=== PATIENT | female | born 1970 | race Caucasian/White ===

== ENCOUNTER 2017-05-22 15:38 | Emergency (ER) | payer MEDICAID, OTHER ==
[~2017-05-22] VITALS: Ht 167.6 cm; Wt 82.5 kg
[~2017-05-22 15:38] MED LIST: HYDR-762 PO; IBUP800T25 PO; ONDA4TAB35 PO; TAMS-14 PO
[2017-05-22 15:41] VITALS: Ht 167.6 cm; Wt 82.5 kg
[2017-05-22] MEDS ORDERED: IBUPROFEN 800 MG TAB PO ONE (17:30)
[2017-05-22] MEDS ORDERED: NPH10OT LEFT EAR (17:41)
[2017-05-22] MEDS ORDERED: AMOX500C2 PO (17:41)
[2017-05-22] MEDS ORDERED: IBUP-1542 PO (17:42)
[2017-05-22] MEDS ORDERED: ACET500C5 PO (17:42)
--- NOTE | 2017-05-22 17:48 | ERD ---
ER Documentation Chief Complaint Date/Time DATE: 05/22/17 TIME: 17:46 Chief Complaint Complains of left ear pain since today HPI This is a 36-year-old female who presents emergency department today complaining of left ear pain that started yesterday. States that she had pain that is worse this morning when she woke up. She took some pain medication that her gave her. Denies any sore throat, cough, nasal congestion. Denies swimming activity, fevers or chills. ROS All systems reviewed and are negative except as per history of present illness. Medications Home Meds Active Scripts Acetaminophen* (Tylophen*) 500 Mg Capsule, 1 CAP PO Q6H Y for PAIN AND OR ELEVATED TEMP, #30 CAP Prov:AMINA MILLER PA-C 05/22/17 Ibuprofen* (Motrin*) 600 Mg Tab, 600 MG PO Q6, #30 TAB Prov:AMINA MILLER PA-C 05/22/17 Amoxicillin* (Amoxicillin*) 500 Mg Cap, 500 MG PO TID for 7 Days, CAP Prov:AMINA MILLER PA-C 05/22/17 Neomycin/Polymyxin/Hydrocort* (Cortisporin* Otic) 10 Ml Susp, 4 DROP LEFT EAR QID for 7 Days, EA Prov:AMINA MILLER PA-C 05/22/17 Tamsulosin Hcl* (Flomax*) 0.4 Mg Cap.er.24h, 0.4 MG PO QPM, #7 CAP Prov:THOR SANTORO MD 03/27/16 Ondansetron Hcl* (Zofran* ODT) 4 mg -ODT Tab.disper, 4 MG PO Q6 Y for NAUSEA AND /OR VOMITING, #10 TAB Prov:THOR SANTORO MD 03/27/16 Ibuprofen* (Motrin*) 800 Mg Tab, 800 MG PO Q6H Y for PAIN AND OR ELEVATED TEMP, #30 TAB Prov:THOR SANTORO MD 03/27/16 Hydrocodone Bit-Acetaminophen* ([place]*) 10-325 Mg Tablet, 1 TAB PO Q6 Y for PAIN , #12 TAB Prov:THOR SANTORO MD 03/27/16 Allergies Allergies: Coded Allergies: No Known Allergy (Unverified , 09/02/15) PMhx/Soc History of Surgery: No Anesthesia Reaction: No Hx Neurological Disorder: No Hx Respiratory Disorders: No Hx Cardiac Disorders: No Hx Psychiatric Problems: No Hx Miscellaneous Medical Probl: No Hx Alcohol Use: No Hx Substance Use: No Hx Tobacco Use: No Physical Exam Vitals Vital Signs Date Time Temp Pulse Resp B/P Pulse Ox O2 Delivery O2 Flow Rate FiO2 05/22/17 15:41 100.0 95 20 165/95 97 Physical Exam Const: NAD Head: Atraumatic Eyes: Normal Conjunctiva ENT: Ear with cerumen impaction. Left ear with evidence of purulent drainage unable to assess TM. No mastoid tenderness. Nose no drainage. Throat erythema no exudate no vesicles Neck: Full range of motion..~ No meningismus. Resp: Clear to auscultation bilaterally Cardio: Regular rate and rhythm, no murmurs Abd: Soft, non tender, non distended. Normal bowel sounds Skin: No petechiae or rashes Neur: Awake and alert Psych: Normal Mood and Affect Results 24 hrs Current Medications Medications (Trade) Dose Ordered Sig/Leydi Route PRN Reason Start Time Stop Time Status Last Admin Dose Admin Ibuprofen (Motrin) 800 mg ONCE ONCE PO 05/22/17 17:30 05/22/17 17:31 DC Procedures/MDM This is a 46-year-old female presents the emergency department today complaining of left ear pain that started yesterday. On physical exam patient had evidence of purulent drainage from her left ear. Her temperature was slightly elevated at 100.0. She is not tachycardic. She does not have tenderness on her mastoid. Patient symptoms at this time most consistent with otitis externa. Given that I am unable to see the patient's TM to the discharge and will also treat her for otitis media. Low suspicion for sepsis, severe acute bacterial infection, mastoiditis. Patient was given Motrin here in the emergency department. She will given a prescription for Tylenol and Motrin for home as well as amoxicillin and Cortisporin. At this time the patient is stable for discharge and outpatient management. Patient should follow up with their PCP in the next 1-2 days. They may return to the emergency department sooner for any persistent or worsening of symptoms. Patient understood and agreed with the plan. Departure Diagnosis: Primary Impression: Left ear pain Condition: Fair Patient Instructions: Otitis Externa (Child) Referrals: SAMUEL CROCKER (PCP) Additional Instructions: Call your primary care doctor TOMORROW for an appointment during the next 1-2 days.See the doctor sooner or return here if your condition worsens before your appointment time. Take both antibiotics as prescribed Keep water out of ear Take tylenol or Motrin for pain or fever AMINA MILLER PA-C May 22, 2017 17:48
== END 2017-05-22 19:22 | disposition home or self-care (01) ==
LOC: FTE 15:38
DX: H92.02 Otalgia, left ear (principal)
CPT/HCPCS: Z7502; Z7610; 99283

== ENCOUNTER 2019-03-02 03:22 | Emergency (ER) | payer OTHER ==
[~2019-03-02] VITALS: Ht 152.4 cm; Wt 85.0 kg
[~2019-03-02 03:22] MED LIST changes: +ACET500C5 PO; +AMOX500C2 PO; +IBUP-1542 PO; -IBUP800T25 PO; +IBUP800T48 PO; +NPH10OT LEFT EAR
[2019-03-02 03:25] VITALS: Ht 152.4 cm; Wt 85.0 kg
[2019-03-02] MEDS ORDERED: SOD CHLORIDE 0.9% 1,000 ML IV STA (03:46)
[2019-03-02] MEDS ORDERED: METOCLOPRAMIDE 10 MG INJ IV STA (03:46)
[2019-03-02] MEDS ORDERED: KETOROLAC 30 MG INJ IV STA (03:46)
--- NOTE | 2019-03-02 04:04 | ERD ---
ER Documentation Chief Complaint Chief Complaint C/O WORSENING RT SIDED GIANG WITH TINGLING TO CHAY HANDS X2 DAYS HPI 48-year-old female with a history of chronic headaches presenting with worsening right-sided headache for the past 3 days. The headache has been intermittent, stabbing, nonradiating, with no exacerbating factors. Somewhat alleviated with ibuprofen at home. No associated fever, chills, neck stiffness, nausea, vomiti ng, vision disturbance, focal weakness or numbness. She occasionally gets tingling in her bilateral hands. She had an MRI about 2 years ago that was normal. She never followed up with physician about her chronic headaches. Current headache episode was gradual in onset. However it is worse than her usual headaches. ROS All systems reviewed and are negative except as per history of present illness. Medications Home Meds Active Scripts Ibuprofen* (Motrin*) 600 Mg Tab, 600 MG PO Q6H PRN for PAIN AND OR ELEVATED TEMP, #30 TAB Prov:MOUNIKA CAI MD 03/02/19 Discontinued Scripts Acetaminophen* (Tylophen*) 500 Mg Capsule, 1 CAP PO Q6H PRN for PAIN AND OR ELEVATED TEMP, #30 CAP Prov:AMINA MILLER PA-C 05/22/17 Ibuprofen* (Motrin*) 600 Mg Tab, 600 MG PO Q6, #30 TAB Prov:AMINA MILLER PA-C 05/22/17 Amoxicillin* (Amoxicillin*) 500 Mg Cap, 500 MG PO TID for 7 Days, CAP Prov:AMINA MILLER PA-C 05/22/17 Neomycin/Polymyxin/Hydrocort* (Cortisporin* Otic) 10 Ml Susp, 4 DROP LEFT EAR QID for 7 Days, EA Prov:AMINA MILLER PA-C 05/22/17 Tamsulosin Hcl* (Flomax*) 0.4 Mg Cap.er.24h, 0.4 MG PO QPM, #7 CAP Prov:THOR SANTORO MD 03/27/16 Ondansetron Hcl* (Zofran* ODT) 4 mg -ODT Tab.disper, 4 MG PO Q6 PRN for NAUSEA AND/OR VOMITING, #10 TAB Prov:THOR SANTORO MD 03/27/16 Ibuprofen* (Motrin*) 800 Mg Tab, 800 MG PO Q6H PRN for PAIN AND OR ELEVATED TEMP, #30 TAB Prov:THOR SANTORO MD 03/27/16 Hydrocodone Bit-Acetaminophen* ([place]*) 10-325 Mg Tablet, 1 TAB PO Q6 PRN for PAIN, #12 TAB Prov:THOR SANTORO MD 03/27/16 Allergies Allergies: Coded Allergies: No Known Allergy (Unverified , 09/02/15) PMhx/Soc Medical and Surgical Hx: pt denies Medical Hx, pt denies Surgical Hx History of Surgery: No Anesthesia Reaction: No Hx Neurological Disorder: No Hx Respiratory Disorders: No Hx Cardiac Disorders: No Hx Psychiatric Problems: No Hx Miscellaneous Medical Probl: No Hx Alcohol Use: No Hx Substance Use: No Hx Tobacco Use: No Smoking Status: Never smoker FmHx Family History: No diabetes, No coronary disease Physical Exam Vitals Vital Signs Date Temp Pulse Resp B/P (MAP) Pulse Ox O2 O2 Flow FiO2 Time Delivery Rate 03/02/19 83 21 124/81 98 Room Air 05:56 (95) 03/02/19 79 16 183/101 97 Room Air 03:50 (128) 03/02/19 99.1 85 21 194/109 95 03:25 (137) Physical Exam Const: No acute distress Head: Atraumatic Eyes: Normal Conjunctiva, PERRLA, EOMI. Difficulty tracking to the left with nystagmus noted horizontally ENT: Normal External Ears, Nose and Mouth. Neck: Full range of motion. No meningismus. Resp: Clear to auscultation bilaterally Cardio: Regular rate and rhythm, no murmurs Abd: Soft, non tender, non distended. Normal bowel sounds Skin: No petechiae or rashes Back: No midline or flank tenderness Ext: No cyanosis, or edema Neur: Awake and alert, oriented x3, normal speech, cranial nerves intact, strength and sensations intact in all 4 extremities. Normal gait. Normal balance. No pronator drift. Psych: Normal Mood and Affect Result Diagram: 03/02/19 0401 03/02/19 0401 Results 24 hrs Laboratory Tests Test 03/02/19 04:01 White Blood Count 6.1 10^3/ul Red Blood Count 4.91 10^6/ul Hemoglobin 10.9 g/dl Hematocrit 35.6 % Mean Corpuscular Volume 72.5 fl Mean Corpuscular Hemoglobin 22.2 pg Mean Corpuscular Hemoglobin Concent 30.6 g/dl Red Cell Distribution Width 18.6 % Platelet Count 285 10^3/UL Mean Platelet Volume 11.4 fl Immature Granulocytes % 0.500 % Neutrophils % 54.2 % Lymphocytes % 33.6 % Monocytes % 8.2 % Eosinophils % 2.8 % Basophils % 0.7 % Nucleated Red Blood Cells % 0.0 /100WBC Immature Granulocytes # 0.030 10^3/ul Neutrophils # 3.3 10^3/ul Lymphocytes # 2.1 10^3/ul Monocytes # 0.5 10^3/ul Eosinophils # 0.2 10^3/ul Basophils # 0.0 10^3/ul Nucleated Red Blood Cells # 0.0 10^3/ul Sodium Level 142 mmol/L Potassium Level 4.2 mmol/L Chloride Level 107 mmol/L Carbon Dioxide Level 27 mmol/L Anion Gap 8 Blood Urea Nitrogen 16 mg/dl Creatinine 0.57 mg/dl Est Glomerular Filtrat Rate mL/min > 60 mL/min Glucose Level 110 mg/dl Calcium Level 8.9 mg/dl Current Medications Medications Dose Sig/Leydi Start Time Status Last (Trade) Ordered Route PRN Stop Time Admin Dose Reason Admin Sodium 1,000 ml @ Q1H STAT 03/02/19 DC 03/02/19 Chloride 1,000 mls/hr IV 03:46 03/02/19 03:54 04:45 10 mg ONCE STAT 03/02/19 DC 03/02/19 Metoclopramid IV 03:46 03/02/19 03:56 e HCl 03:47 (Reglan) Ketorolac 30 mg ONCE STAT 03/02/19 DC 03/02/19 Tromethamine IV 03:46 03/02/19 03:56 (Toradol) 03:47 Procedures/MDM EMERGENT LABS AND DIAGNOSTIC STUDIES: Lab Results above were reviewed and interpreted by me. CBC: no anemia or evidence of infection BMP: no e/o clinically significant electrolyte abnormality severe acidosis, alkalosis, renal failure, diabetic ketoacidosis 12-lead EKG was interpreted by Ngozi Cai MD: Normal Sinus Rhythm Normal axis Normal intervals No acute ST or T wave changes suggestive of acute ischemia or STEMI. Radiology Results as interpreted by Radiology below were reviewed by Aileen Cai MD: CT head: no acute or significant abnormalities. Sinus disease noted Initial Nursing notes reviewed. Previous Medical Records requested via the Electronic Health Record. EMERGENCY DEPARTMENT COURSE / MEDICAL DECISION MAKING: Patient is presenting with likely primary headache. Considered subarachnoid hemorrhage, cervical artery dissection, meningitis, temporal arteritis, acute glaucoma, venous thrombosis or carbon monoxide poisoning but less likely based on history, physical and overall well appearance. Given insistence by patient's daughter, despite my low suspicion, I ordered CT head to evaluate for acute intracranial process and CT showed only sinusitis, likely chronic. Patient treated with IV Reglan and Toradol. Upon reassessment, patients symptoms have significantly improved. There is no evidence of meningitis, intracranial bleed, seizure, stroke. Patient is stable for discharge with analgesics and continued outpatient follow up with PCP. Patient's blood pressure was elevated (>120/80) but appears stable without evidence of hypertensive emergency or urgency. The patient was counseled about the risks of hypertension and urged to pursue outpatient monitoring and therapy within a week with their primary care physician. Departure Diagnosis: Primary Impression: Headache Headache type: unspecified Headache chronicity pattern: chronic headache Intractability: not intractable Qualified Codes: R51 - Headache Condition: Stable MOUNIKA CAI MD Mar 02, 2019 04:04
[2019-03-02] MEDS ORDERED: IBUP-1542 PO (05:40)
[2019-03-02 05:56] VITALS: BP 124/81; PULSE 83; RESP 21
== END 2019-03-02 05:57 | disposition home or self-care (01) ==
LOC: E/R 03:22
DX: R51 Headache (principal)
CPT/HCPCS: 36415; 70450; 80048; 85025; 93005; 96374; 96375; J1885; J2765; J7030; Z7502